=== PATIENT | male | born 1990 | race Asian ===

== ENCOUNTER 2016-12-10 10:45 | Emergency (ER) | payer BC, OTHER ==
[~2016-12-10] VITALS: Ht 165.1 cm; Wt 80.7 kg
[2016-12-10 10:47] VITALS: BP 142/81
[2016-12-10] MEDS ORDERED: DIAZEPAM 5 MG TABLET ONE (11:10)
[2016-12-10] MEDS ORDERED: HYDROcodone/APAP 5/325 TABLET ONE (11:10)
[2016-12-10] MEDS ORDERED: KETOROLAC 30 MG/1 ML ONE (11:10)
[2016-12-10] MEDS ORDERED: HYDROcodone/APAP 5/325 TABLET PO ONE (11:30)
[2016-12-10] MEDS ORDERED: DIAZEPAM 5 MG TABLET PO ONE (11:30)
[2016-12-10] MEDS ORDERED: KETOROLAC 30 MG/1 ML IM ONE (11:30)
== END 2016-12-10 12:11 | disposition home or self-care (01) ==
LOC: ED 11:27
DX: S39.012A Strain of muscle, fascia and tendon of lower back, initial encounter (principal); M10.9 Gout, unspecified; M25.571 Pain in right ankle and joints of right foot; M25.561 Pain in right knee; F17.200 Nicotine dependence, unspecified, uncomplicated; W19.XXXA Unspecified fall, initial encounter; Y93.89 Activity, other specified; Y92.89 Other specified places as the place of occurrence of the external cause; Y99.8 Other external cause status
CPT/HCPCS: 72110; 96372; 99284; J1885

== ENCOUNTER 2017-04-16 07:56 | Emergency (ER) | payer SELFPAY ==
[~2017-04-16] VITALS: Ht 165.1 cm; Wt 81.8 kg
[2017-04-16 08:02] VITALS: BP 159/90
[2017-04-16] MEDS ORDERED: ALLO300T PO (08:23)
[2017-04-16] MEDS ORDERED: HYDROmorphone 1 MG/ML, 1ML IM ONE (08:30)
[2017-04-16] MEDS ORDERED: KETOROLAC 30 MG/1 ML IM ONE (08:30)
[2017-04-16] MEDS ORDERED: HYDROmorphone 1 MG/ML, 1ML ONE (08:40)
[2017-04-16] MEDS ORDERED: KETOROLAC 30 MG/1 ML ONE (08:40)
== END 2017-04-16 10:28 | disposition home or self-care (01) ==
LOC: ED 10:12
DX: M10.00 Idiopathic gout, unspecified site (principal); M19.072 Primary osteoarthritis, left ankle and foot; J00 Acute nasopharyngitis [common cold]; B97.89 Other viral agents as the cause of diseases classified elsewhere
CPT/HCPCS: 73630; 96372; 99284; J1170; J1885

== ENCOUNTER 2018-03-24 16:29 | Emergency (ER) | payer MEDICAID ==
[~2018-03-24] VITALS: Ht 167.6 cm; Wt 76.0 kg
[~2018-03-24 16:29] MED LIST: ALLO300T PO
[2018-03-24 16:39] VITALS: BP 126/90
== END 2018-03-24 17:29 | disposition home or self-care (01) ==
LOC: ED 17:01
DX: B02.9 Zoster without complications (principal); I10 Essential (primary) hypertension; J45.909 Unspecified asthma, uncomplicated; M10.9 Gout, unspecified; F17.200 Nicotine dependence, unspecified, uncomplicated; Z90.49 Acquired absence of other specified parts of digestive tract
CPT/HCPCS: 99283

== ENCOUNTER 2019-01-10 06:32 | Emergency (ER) | payer MEDICAID ==
[~2019-01-10] VITALS: Ht 165.1 cm; Wt 72.0 kg
[2019-01-10] MEDS ORDERED: ALLO100T30 PO (06:42)
--- NOTE | 2019-01-10 06:50 | NUR ---
Received bedside report from GALE Rosas. All questions answered. NADN. Pt resting on gurney connected to NIBP, continous pulse ox, and auto body man. Both bedrails up for safety measures. Call light within reach. Blankets provided for comfort measures. Pt denies cp, sob, trauma, or syncope. CMS intact.
--- NOTE | 2019-01-10 06:51 | NUR ---
report given to penelope robb
[2019-01-10] MEDS ORDERED: SODIUM CHLORIDE FLUSH 10ML SYR IVF ONE (07:00)
[2019-01-10] MEDS ORDERED: SODIUM CHLORIDE 0.9% 1,000ML IVBOLUS ONE ×2 (07:00→09:00)
[2019-01-10 07:17] LABS: MEAN CORPUSCULAR HEMOGLOBIN 30.1 pg (27.5-34.5); MEAN CORPUSCULAR HGB CONC 32.9 g/dL (33.2-36.2); MEAN CORPUSCULAR VOLUME 91.5 fL (81-97); MEAN PLATELET VOLUME 8.3 fL (7.4-10.4); PLATELET COUNT 204 x10^3/uL (130-400); RED CELL DISTRIBUTION WIDTH 13.8 % (9.4-14.8)
--- NOTE | 2019-01-10 07:21 | NUR ---
Jerrell transported on [facility] to x-ray.
[2019-01-10 07:28] LABS: ALANINE AMINOTRANSFERASE 59 U/L (12-78); ALBUMIN 4.3 g/dL (3.4-5.0); ANION GAP 6 mmol/L (5-15); CALCIUM 9.6 mg/dL (8.5-10.1); CHLORIDE 108 mmol/L (98-107); CREATININE 1.23 mg/dL (0.7-1.3)
[2019-01-10 07:31] LABS: ALKALINE PHOSPHATASE 79 U/L (45-117); BILIRUBIN,TOTAL 0.8 mg/dL (0.2-1.0); TOTAL PROTEIN 7.5 g/dL (6.4-8.2)
--- NOTE | 2019-01-10 07:31 | NUR ---
Hourly rounding. Pt resting on gurney with PIV fluids infusing per EMAR. Both bed rails up for safety measures. Call light within reach. NADN. No needs expressed. Pt aware of need of urine sample. Family at bedside.
[2019-01-10 07:41] LABS: BASOPHILS % (AUTO) 0 % (0-1); EOSINOPHILS # (AUTO) 0.07 x10^3/uL (0-0.4); EOSINOPHILS % (AUTO) 0 % (1-7); LYMPHOCYTES # (AUTO) 0.86 x10^3/uL (1-3.4); LYMPHOCYTES % (AUTO) 6 % (22-44); MD SCAN; MONOCYTES # (AUTO) 0.53 x10^3/uL (0.2-0.8); MONOCYTES % (AUTO) 4 % (2-9); NEUTROPHILS # (AUTO) 13.81 x10^3/uL (1.8-6.8); NEUTROPHILS % (AUTO) 90 % (42-75)
--- NOTE | 2019-01-10 07:52 | NUR ---
Pt declines ability to provide urine sample at this time. Will re-check with pt at later time for toileting needs. NADN. No needs expressed. Call light within reach. Both bedrails up for safety measures.
[2019-01-10 09:36] VITALS: BP 149/81
--- NOTE | 2019-01-10 09:37 | NUR ---
Pt bladder scanned and found to have 375 mL of urine in bladder. Provided pt urinal and asked if he could get up and try to pee. Pt stood with steady gait and balance at bedside and used urinal. Pt had clear yellow urine output of approximately 375 mL of urine. EDMD notified.
--- NOTE | 2019-01-10 09:43 | NUR ---
UA sent to lab.
[2019-01-10 09:57] LABS: MICROSCOPIC NOT IND
[2019-01-10 10:00] LABS: CULTURE INDICATED? NO
--- NOTE | 2019-01-10 10:07 | NUR ---
Patient given discharge instructions and they have confirmed that they understand the instructions. Patient ambulatory with steady gait. Pt left with d/c paperwork, prescription, work note, and all personal belongings. Pt encouraged to return to ED if symptoms worsen or change.
== END 2019-01-10 10:09 | disposition home or self-care (01) ==
LOC: ED 07:03
DX: K52.9 Noninfective gastroenteritis and colitis, unspecified (principal)
CPT/HCPCS: 36415; 74021; 80053; 81003; 83690; 85025; 93005; 96360; 96361; 99284; J7030

== ENCOUNTER 2019-01-17 17:19 | Emergency (ER) | payer MEDICAID ==
[~2019-01-17] VITALS: Ht 165.1 cm; Wt 80.0 kg
[~2019-01-17 17:19] MED LIST changes: +ALLO100T30 PO
[2019-01-17] MEDS ORDERED: ONDANSETRON ODT 4 MG PO ONE (18:00)
[2019-01-17 18:16] LABS: MEAN CORPUSCULAR HEMOGLOBIN 30.8 pg (27.5-34.5); MEAN CORPUSCULAR HGB CONC 33.4 g/dL (33.2-36.2); MEAN CORPUSCULAR VOLUME 92.4 fL (81-97); MEAN PLATELET VOLUME 8.2 fL (7.4-10.4); PLATELET COUNT 218 x10^3/uL (130-400); RED BLOOD COUNT 5.19 x10^6/uL (4.38-5.82); RED CELL DISTRIBUTION WIDTH 13.9 % (9.4-14.8)
[2019-01-17 18:17] LABS: MICROSCOPIC NOT IND
[2019-01-17 18:20] LABS: CULTURE INDICATED? NO
[2019-01-17 18:26] LABS: ALBUMIN 4.2 g/dL (3.4-5.0); ANION GAP 8 mmol/L (5-15); CALCIUM 8.9 mg/dL (8.5-10.1); CHLORIDE 107 mmol/L (98-107)
[2019-01-17 18:30] LABS: ALANINE AMINOTRANSFERASE 38 U/L (12-78); ALKALINE PHOSPHATASE 67 U/L (45-117); BILIRUBIN,TOTAL 0.3 mg/dL (0.2-1.0); CREATININE 1.07 mg/dL (0.7-1.3); TOTAL PROTEIN 7.1 g/dL (6.4-8.2)
--- NOTE | 2019-01-17 18:43 | NUR ---
PT TO ROOM FROM LOBBY
[2019-01-17 19:02] LABS: BASOPHILS # (AUTO) 0.04 x10^3/uL (0-0.1); BASOPHILS % (AUTO) 0 % (0-1); EOSINOPHILS # (AUTO) 0.29 x10^3/uL (0-0.4); EOSINOPHILS % (AUTO) 2 % (1-7); LYMPHOCYTES # (AUTO) 1.35 x10^3/uL (1-3.4); LYMPHOCYTES % (AUTO) 7 % (22-44); MD SCAN; MONOCYTES # (AUTO) 0.91 x10^3/uL (0.2-0.8); MONOCYTES % (AUTO) 5 % (2-9); NEUTROPHILS # (AUTO) 16.39 x10^3/uL (1.8-6.8); NEUTROPHILS % (AUTO) 86 % (42-75)
[2019-01-17] MEDS ORDERED: ONDANSETRON ODT 4 MG ONE (19:06)
--- NOTE | 2019-01-17 19:13 | NUR ---
ASSESSMENT MADE. MEDICATED FOR NAUSEA / VOMITING. UNABLE TO GIVE STOOL SAMPLE.
--- NOTE | 2019-01-17 19:59 | NUR ---
re-evaluation done. new orders made. IV placed for CT scan with contrast.
--- NOTE | 2019-01-17 20:27 | NUR ---
patient to CT scan.
[2019-01-17] MEDS ORDERED: OMNIPAQUE 350 MG/ML, 100ML BOTTLE ONE (20:44)
[2019-01-17] MEDS ORDERED: SODIUM CHLORIDE FLUSH 10ML SYR IVF ONE (21:00)
--- NOTE | 2019-01-17 21:16 | NUR ---
CT scan resulted. ERP at bedside for re-evaluation.
[2019-01-17] MEDS ORDERED: MAALOX/HYOSCYAMINE/LIDOCAINE 45 ML BTL ONE (21:20)
[2019-01-17] MEDS ORDERED: MAALOX/HYOSCYAMINE/LIDOCAINE 45 ML BTL PO ONE (21:30)
[2019-01-17 21:35] VITALS: BP 133/78
--- NOTE | 2019-01-17 21:35 | NUR ---
re-evaluation done. patient discharged with instruction. verbalized understanding.
== END 2019-01-17 21:37 | disposition home or self-care (01) ==
LOC: ED 21:25
DX: K52.9 Noninfective gastroenteritis and colitis, unspecified (principal); F17.200 Nicotine dependence, unspecified, uncomplicated; I10 Essential (primary) hypertension; J45.909 Unspecified asthma, uncomplicated; M19.90 Unspecified osteoarthritis, unspecified site; Z90.49 Acquired absence of other specified parts of digestive tract
CPT/HCPCS: 36415; 74021; 74177; 80053; 81003; 85025; 99284; Q0162; Q9967

== ENCOUNTER 2019-05-16 08:03 | Emergency (ER) | payer MEDICAID, OTHER ==
[~2019-05-16] VITALS: Ht 165.1 cm; Wt 81.0 kg
--- NOTE | 2019-05-16 08:40 | NUR ---
PATIENT PRESENTS TO ED TODAY FOR INTERRMITTENT RLQ PAIN WITH VOMITING X 5 DAYS, DENIES DIARRHEA. HX RIAZ 4 YEARS AGO. DENIES MEDICAL HX. FAMILY AT BEDSIDE. CALL LIGHT WITHIN REACH. JUSTIN. AWAITING ORDERS. Addendum: 05/16/19 at 0856 by JENNY CORRECTION: PATIENT HAS HX OF GOUT.
[2019-05-16] MEDS ORDERED: FAMOTIDINE 20 MG/2 ML ONE (08:59)
[2019-05-16] MEDS ORDERED: ONDANSETRON 2MG/ML, 2ML ONE (08:59)
[2019-05-16] MEDS ORDERED: FAMOTIDINE 20 MG/2 ML IVPush ONE (09:00)
[2019-05-16] MEDS ORDERED: ONDANSETRON 2MG/ML, 2ML IVPush ONE (09:00)
[2019-05-16] MEDS ORDERED: SODIUM CHLORIDE FLUSH 10ML SYR IVF ONE (09:00)
[2019-05-16 09:03] LABS: BASOPHILS # (AUTO) 0.01 x10^3/uL (0-0.1); BASOPHILS % (AUTO) 0 % (0-1); EOSINOPHILS # (AUTO) 0.24 x10^3/uL (0-0.4); EOSINOPHILS % (AUTO) 2 % (1-7); LYMPHOCYTES # (AUTO) 1.24 x10^3/uL (1-3.4); LYMPHOCYTES % (AUTO) 11 % (22-44); MD NO; MEAN CORPUSCULAR HEMOGLOBIN 30.6 pg (27.5-34.5); MEAN CORPUSCULAR HGB CONC 33.5 g/dL (33.2-36.2); MEAN CORPUSCULAR VOLUME 91.1 fL (81-97); MEAN PLATELET VOLUME 8.4 fL (7.4-10.4); MONOCYTES # (AUTO) 0.71 x10^3/uL (0.2-0.8); MONOCYTES % (AUTO) 6 % (2-9); NEUTROPHILS # (AUTO) 9.39 x10^3/uL (1.8-6.8); NEUTROPHILS % (AUTO) 81 % (42-75); PLATELET COUNT 188 x10^3/uL (130-400); RED BLOOD COUNT 5.15 x10^6/uL (4.38-5.82); RED CELL DISTRIBUTION WIDTH 13.6 % (9.4-14.8)
--- NOTE | 2019-05-16 09:05 | NUR ---
IV ESTABLISHED, MEDICATIONS ADMINISTERED PER MAR. VSS AND UPDATED IN CHART, NADN. AWAITING RESULTS, NO ADDITIONAL NEEDS AT THIS TIME.
[2019-05-16 09:06] VITALS: BP 125/71
[2019-05-16 09:12] LABS: ALANINE AMINOTRANSFERASE 62 U/L (12-78); ALBUMIN 3.8 g/dL (3.4-5.0); ANION GAP 2 mmol/L (5-15); CALCIUM 8.4 mg/dL (8.5-10.1); CHLORIDE 108 mmol/L (98-107); CREATININE 0.92 mg/dL (0.7-1.3)
[2019-05-16 09:15] LABS: ALKALINE PHOSPHATASE 59 U/L (45-117); BILIRUBIN,TOTAL 0.4 mg/dL (0.2-1.0); TOTAL PROTEIN 6.6 g/dL (6.4-8.2)
[2019-05-16 09:28] LABS: MICROSCOPIC NOT IND
[2019-05-16 09:30] LABS: CULTURE INDICATED? NO
--- NOTE | 2019-05-16 09:34 | NUR ---
PATIENT IN CT.
--- NOTE | 2019-05-16 09:59 | NUR ---
REPORT TO GALE WOODS.
--- NOTE | 2019-05-16 10:00 | NUR ---
REPORT FROM HERB RN PATIENT RESTING COMFORTABLY ON RLINCOLN. REPORTS NAUSEA IMPROVED TO 2/10
[2019-05-16] MEDS ORDERED: OMNIPAQUE 350 MG/ML, 100ML BOTTLE ONE (10:07)
== END 2019-05-16 10:22 | disposition home or self-care (01) ==
LOC: ED 10:03
DX: R10.31 Right lower quadrant pain (principal); R11.2 Nausea with vomiting, unspecified; I10 Essential (primary) hypertension; Z90.49 Acquired absence of other specified parts of digestive tract
CPT/HCPCS: 36415; 74177; 80053; 81003; 83690; 85025; 96374; 96375; 99284; J2405; J3490; Q9967